=== PATIENT | female | born 1960 | race Caucasian/White ===

== ENCOUNTER 2016-10-22 08:05 | Day surgery (SDC) | payer BC ==
[~2016-10-22] VITALS: Ht 167.6 cm
--- NOTE | 2016-10-23 08:02 | OR ---
ADMIT: 10/22/2016 RM/LOC: [facility] MR#: [id number] [facility] [address] [id number] [place] [address] [address] Operative/Delivery Room Report SEX: F AGE: 56 : 1960 SURGERY DATE: 10/22/2016 SURGEON: Claudio Carvajal MD POLITICAL SCIENCE CHAIR: None. PREPROCEDURE DIAGNOSES: 1. Bilateral hip pain. 2. Bilateral trochanteric bursitis. POSTPROCEDURAL DIAGNOSES: 1. Bilateral hip pain. 2. Bilateral trochanteric bursitis. PROCEDURE PERFORMED: Bilateral greater trochanter bursa injection. INDICATIONS FOR PROCEDURE: The patient is a pleasant female with history of chronic bilateral hip pain secondary to above mentioned diagnoses, comes here for bilateral greater trochanter bursa injection. ANESTHESIA: Local without sedation. BLOOD LOSS: Zero. COMPLICATIONS: None immediately evident. DESCRIPTION OF PROCEDURE: After the patient was seen in the preoperative area, vitals signs were taken. Prior to the procedure, the risks, benefits, and alternative therapies were discussed at length. Patient consent was obtained and updated. The patient was taken to the fluoroscopy suite and placed on the fluoroscopy table in the prone position. Pressure points were padded to comfort, monitors applied, and a timeout performed. Fluoroscopy was brought in. The patient was sterilely prepped and draped in the usual manner with ChloraPrep solution, and 1% lidocaine was used to anesthetize the skin at the appropriate needle entry site. A 3.5-inch 22- gauge curved-tip needle was manipulated from the right side using AP ADMIT: 10/22/2016 RM/LOC: [facility] MR#: [id number] [address] [id number] [place] [address] [place], [place] [id number] Operative/Delivery Room Report SEX: F AGE: 56 : 1960 fluoroscopic view of right trochanteric area. Osteal contact of needle was obtained at the greater trochanter and slightly withdrawn. Injection of 2 mL of Isovue 300 showed delineation of the right greater trochanteric bursa. The needle then injected a 5 mL solution consisting of 0.25% bupivacaine and 40 mg Depo-Medrol. The needle was then withdrawn and a band-aid applied. Vital signs remained stable. The patient tolerated the procedure well. Then we moved on to the left side and repeated the same procedure. PLAN: The patient was examined after 20 minutes and had 60% reduction of pain. Discharge instructions were given, followup scheduled. 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 Claudio Carvajal MD/ douglas JOB #: [id number] CC: Claudio Carvajal, Attending Physician Vivek Thurston, Family Physician
== END 2016-10-22 09:10 | disposition home or self-care (01) ==
LOC: SSS 08:05
PROC: 3E0U33Z Introduction of Anti-inflammatory into Joints, Percutaneous Approach (ICD-10-PCS; principal; 2016-10-22)
DX: G89.29 Other chronic pain (principal); M70.62 Trochanteric bursitis, left hip; M70.61 Trochanteric bursitis, right hip; M47.816 Spondylosis without myelopathy or radiculopathy, lumbar region; F41.9 Anxiety disorder, unspecified; I10 Essential (primary) hypertension; E78.5 Hyperlipidemia, unspecified; J45.909 Unspecified asthma, uncomplicated; G43.909 Migraine, unspecified, not intractable, without status migrainosus; Z88.8 Allergy status to other drugs, medicaments and biological substances; Z79.82 Long term (current) use of aspirin; Z79.899 Other long term (current) drug therapy; Z90.710 Acquired absence of both cervix and uterus; Z98.890 Other specified postprocedural states